=== PATIENT | male | born 1995 | race Caucasian/White ===

== ENCOUNTER 2021-06-03 20:48 | Inpatient (IN) ==
[2021-06-04] MEDS ORDERED: Naloxone 0.4 MG/ML INJ IVP PRN (04:18)
[2021-06-04] MEDS ORDERED: Ondansetron 4 MG/2 ML VIAL IVP PRN (04:18)
[2021-06-04] MEDS ORDERED: 0.9 % Sodium Chloride 1,000 ML IVC SCH (04:30)
[2021-06-04] MEDS ORDERED: D5 IVC ONE (05:04)
[2021-06-04] MEDS ORDERED: ACETYLCYSTEINE IVC ONE (05:04)
[2021-06-04] MEDS ORDERED: WATER IVC ONE (05:04)
[2021-06-04 07:07] LABS: VBG HCO3 21 mEq/L (21-27); VBG PCO2 41 mmHg (41-51); VBG PH 7.32 pH Units (7.32-7.42); VBG PO2 67 mmHg (25-50)
[2021-06-04 07:13] LABS: Basophils # 0.1 K/mcL (0.0-0.2); Basophils % 0.5 %; Eosinophils # 0.1 K/mcL (0.0-0.6); Eosinophils % 1.2 %; Hematocrit 39.6 % (37.5-50.1); Hemoglobin 13.6 g/dL (12.9-16.9); Immature Granulocytes % 0.3 % (0-4); Lymphocytes # 1.1 K/mcL (0.6-4.6); Lymphocytes % 11.6 %; Mean Corpuscular HGB Conc 34.3 g/dL (31.6-35.5); Mean Corpuscular Hemoglobin 30.2 pg (28.0-33.3); Mean Platelet Volume 9.8 fL (9.4-12.4); Monocytes # 0.5 K/mcL (0.0-1.3); Monocytes % 5.2 %; Neutrophils # 7.8 K/mcL (1.6-8.9); Platelet Count 211 K/mcL (140-400); Red Cell Distribution Width 12.2 % (11.5-14.5); Segmented Neutrophils % 81.2 %; White Blood Count 9.6 K/mcL (4.3-11.1)
[2021-06-04 07:20] LABS: INR 1.4; Prothrombin Time 15.9 Seconds (9.4-12.1)
[2021-06-04 07:22] LABS: Activated Partial Thrombo Time 30.2 Seconds (26.0-36.0)
[2021-06-04 07:30] LABS: Acetaminophen 37 mcg/mL (10-20); Alanine Aminotransferase 120 Units/L (7-52); Albumin 4.1 g/dL (3.5-5.7); Albumin/Globulin Ratio 1.9 (1.1-2.2); Alkaline Phosphatase 40 Units/L (34-104); Aspartate Amino Transferase 71 Units/L (13-39); BUN/Creatinine Ratio 22 (6-26); Bilirubin,Direct 0.5 mg/dL (0.0-0.2); Bilirubin,Indirect 2.3 mg/dL (0.0-1.0); Bilirubin,Total 2.8 mg/dL (0.3-1.0); Blood Urea Nitrogen 25 mg/dL (6-20); Calcium 8.5 mg/dL (8.6-10.3); Carbon Dioxide 18 mEq/L (23-29); Chloride 111 mEq/L (98-107); Chol/HDL Ratio 3.8 (0-4.9); Cholesterol 110 mg/dL (< 200); Ethanol < 10 mg/dL (Less than 10); Globulin 2.2 g/dL (2.4-3.5); Glucose 125 mg/dL (70-105); HDL Cholesterol 29 mg/dL (40-59); LDL Cholesterol,Calculated 76 mg/dL (< 100); Magnesium 2.4 mg/dL (1.6-2.6); Osmolality,Calculated 296 (280-300); Phosphorous 5.4 mg/dL (2.7-4.5); Potassium 3.7 mEq/L (3.5-5.1); Salicylate < 2.5 mg/dL (15.0-30.0); Sodium 140 mEq/L (136-145); Total Protein 6.3 g/dL (6.4-8.9); Triglycerides 26 mg/dL (< 150); eGFR For African Americans > 60 (> 60); eGFR For Non-African Americans > 60 (> 60)
[2021-06-04 08:01] LABS: Hepatitis B Surface Antigen Nonreactive (Nonreactive)
[2021-06-04 08:30] LABS: Hepatitis B Core IgM Nonreactive (Nonreactive)
[2021-06-04 08:31] LABS: Hepatitis A Antibody IgM Nonreactive (Nonreactive)
[2021-06-04 10:01] LABS: Hepatitis C Virus Antibody Reactive (Nonreactive)
[2021-06-04 12:11] LABS: Bilirubin,Urine Negative (Negative); Blood,Urine Negative (Negative); Clarity,Urine Clear (Clear); Color,Urine Light-Yellow (Yellow); Glucose,Urine (UA) 30 mg/dL (Normal); Ketones,Urine 10 mg/dL (Negative); Leukocyte Esterase,Urine Negative (Negative); Mucus,Urine Few per lpf (None-Few); Nitrite,Urine Negative (Negative); Protein,Urine Trace mg/dL (Neg-Trace); RBC,Urine 0-3 per hpf (0-3); Specific Gravity,Urine 1.028 (1.010-1.025); Squamous Epithelial Cell,Urine Few per hpf (None-Few); Urobilinogen,Urine Normal (Normal); WBC,Urine 50-100 per hpf (0-3)
[2021-06-04 12:33] LABS: Amphetamine Screen,Urine Positive ng/mL (Cutoff=1000); Barbiturate Screen,Urine Negative ng/mL (Cutoff=200); Benzodiazepines Screen,Urine Negative ng/mL (Cutoff=200); Cannabinoid Screen,Urine Negative ng/mL (Cutoff = 50); Cocaine Screen,Urine Negative ng/mL (Cutoff= 300); Opiate Screen,Urine Negative ng/mL (Cutoff=300); Phencyclidine Screen,Urine Negative ng/mL (Cutoff=25)
[2021-06-04] MEDS: Ringers Solution, Lactated 1,000 ML IVC SCH (13:58)
[2021-06-04 14:40] LABS: Alanine Aminotransferase 132 Units/L (7-52); Albumin 4.3 g/dL (3.5-5.7); Albumin/Globulin Ratio 1.9 (1.1-2.2); Alkaline Phosphatase 41 Units/L (34-104); Aspartate Amino Transferase 61 Units/L (13-39); BUN/Creatinine Ratio 21 (6-26); Blood Urea Nitrogen 23 mg/dL (6-20); Calcium 8.8 mg/dL (8.6-10.3); Carbon Dioxide 22 mEq/L (23-29); Chloride 110 mEq/L (98-107); Globulin 2.3 g/dL (2.4-3.5); Glucose 103 mg/dL (70-105); Osmolality,Calculated 294 (280-300); Potassium 3.7 mEq/L (3.5-5.1); Sodium 140 mEq/L (136-145); Total Protein 6.6 g/dL (6.4-8.9); eGFR For African Americans > 60 (> 60); eGFR For Non-African Americans > 60 (> 60)
[2021-06-04] MEDS: *HR* Heparin 5,000 UNIT/ML VIAL SQ SCH (18:25)
[2021-06-04 20:14] LABS: Acetaminophen < 10 mcg/mL (10-20); Alanine Aminotransferase 140 Units/L (7-52); Albumin 3.9 g/dL (3.5-5.7); Albumin/Globulin Ratio 1.6 (1.1-2.2); Alkaline Phosphatase 41 Units/L (34-104); Aspartate Amino Transferase 65 Units/L (13-39); Bilirubin,Direct 0.4 mg/dL (0.0-0.2); Bilirubin,Total 2.4 mg/dL (0.3-1.0); Globulin 2.5 g/dL (2.4-3.5); Total Protein 6.4 g/dL (6.4-8.9)
[2021-06-04] MEDS: D5 IVC ONE (21:15)
[2021-06-04] MEDS: ACETYLCYSTEINE IVC ONE (21:15)
[2021-06-04] MEDS: WATER IVC ONE (21:15)
[2021-06-05] MEDS: Ringers Solution, Lactated 1,000 ML IVC SCH ×4 (05:12→18:33)
[2021-06-05] MEDS: *HR* Heparin 5,000 UNIT/ML VIAL SQ SCH ×2 (05:41→18:33)
[2021-06-05 06:03] LABS: Alanine Aminotransferase 420 Units/L (7-52); Albumin 3.7 g/dL (3.5-5.7); Albumin/Globulin Ratio 1.7 (1.1-2.2); Alkaline Phosphatase 37 Units/L (34-104); Aspartate Amino Transferase 327 Units/L (13-39); BUN/Creatinine Ratio 19 (6-26); Bilirubin,Total 1.7 mg/dL (0.3-1.0); Blood Urea Nitrogen 17 mg/dL (6-20); Calcium 8.7 mg/dL (8.6-10.3); Carbon Dioxide 23 mEq/L (23-29); Chloride 109 mEq/L (98-107); Globulin 2.2 g/dL (2.4-3.5); Glucose 104 mg/dL (70-105); Osmolality,Calculated 288 (280-300); Potassium 3.9 mEq/L (3.5-5.1); Sodium 138 mEq/L (136-145); Total Protein 5.9 g/dL (6.4-8.9); eGFR For African Americans > 60 (> 60); eGFR For Non-African Americans > 60 (> 60)
[2021-06-05 08:54] LABS: INR 1.4; Prothrombin Time 15.7 Seconds (9.4-12.1)
[2021-06-05 11:57] LABS: Alanine Aminotransferase 736 Units/L (7-52); Albumin 3.7 g/dL (3.5-5.7); Albumin/Globulin Ratio 1.7 (1.1-2.2); Alkaline Phosphatase 35 Units/L (34-104); Aspartate Amino Transferase 509 Units/L (13-39); Bilirubin,Direct 0.3 mg/dL (0.0-0.2); Bilirubin,Indirect 1.3 mg/dL (0.0-1.0); Bilirubin,Total 1.6 mg/dL (0.3-1.0); Globulin 2.2 g/dL (2.4-3.5); Total Protein 5.9 g/dL (6.4-8.9)
[2021-06-05] MEDS: ACETYLCYSTEINE IVC ONE (12:34)
[2021-06-05] MEDS: WATER IVC ONE (12:34)
[2021-06-05] MEDS: D5 IVC ONE (12:34)
[2021-06-05 14:12] LABS: Acetaminophen < 10 mcg/mL (10-20)
[2021-06-05] MEDS ORDERED: ACETYLCYSTEINE 6000 MG/30 ML IVC SCH (18:38)
[2021-06-05] MEDS ORDERED: D5 IVC SCH (18:45)
[2021-06-05] MEDS ORDERED: ACETYLCYSTEINE IVC SCH (18:45)
[2021-06-05] MEDS ORDERED: WATER IVC SCH (18:45)
[2021-06-06 03:00] LABS: Acetaminophen < 10 mcg/mL (10-20); Alanine Aminotransferase 848 Units/L (7-52); BUN/Creatinine Ratio 14 (6-26); Blood Urea Nitrogen 10 mg/dL (6-20); Calcium 8.8 mg/dL (8.6-10.3); Carbon Dioxide 27 mEq/L (23-29); Chloride 106 mEq/L (98-107); Glucose 153 mg/dL (70-105); Osmolality,Calculated 290 (280-300); Potassium 3.5 mEq/L (3.5-5.1); Sodium 139 mEq/L (136-145); eGFR For African Americans > 60 (> 60); eGFR For Non-African Americans > 60 (> 60)
[2021-06-06 03:42] LABS: Alkaline Phosphatase 34 Units/L (34-104); Aspartate Amino Transferase 371 Units/L (13-39); Bilirubin,Direct 0.2 mg/dL (0.0-0.2); Bilirubin,Indirect 0.7 mg/dL (0.0-1.0); Bilirubin,Total 0.9 mg/dL (0.3-1.0)
[2021-06-06 03:43] LABS: Albumin 3.6 g/dL (3.5-5.7); Albumin/Globulin Ratio 1.6 (1.1-2.2); Globulin 2.2 g/dL (2.4-3.5); Total Protein 5.8 g/dL (6.4-8.9)
[2021-06-06 04:15] LABS: Basophils % 0.6 %; Eosinophils # 0.3 K/mcL (0.0-0.6); Eosinophils % 5.5 %; Hematocrit 35.5 % (37.5-50.1); Hemoglobin 12.3 g/dL (12.9-16.9); Immature Granulocytes % 0.2 % (0-4); Lymphocytes # 1.6 K/mcL (0.6-4.6); Lymphocytes % 32.6 %; Mean Corpuscular HGB Conc 34.6 g/dL (31.6-35.5); Mean Corpuscular Hemoglobin 30.4 pg (28.0-33.3); Mean Corpuscular Volume 87.7 fL (83.0-100.0); Mean Platelet Volume 10.1 fL (9.4-12.4); Monocytes # 0.4 K/mcL (0.0-1.3); Monocytes % 8.5 %; Neutrophils # 2.6 K/mcL (1.6-8.9); Platelet Count 207 K/mcL (140-400); Red Blood Count 4.05 M/mcL (4.19-5.50); Segmented Neutrophils % 52.6 %; White Blood Count 4.9 K/mcL (4.3-11.1)
[2021-06-06] MEDS: Ringers Solution, Lactated 1,000 ML IVC SCH (04:45)
[2021-06-06] MEDS: *HR* Heparin 5,000 UNIT/ML VIAL SQ SCH ×2 (06:11→18:15)
[2021-06-06] MEDS ORDERED: Ondansetron 4 MG/2 ML VIAL IVP PRN (13:00)
[2021-06-06] MEDS ORDERED: Naloxone 0.4 MG/ML INJ IVP PRN (13:00)
[2021-06-07] MEDS ORDERED: *HR* HYDROmorphone 2 MG TABLET PO ONE (03:52)
[2021-06-07] MEDS ORDERED: Ibuprofen 600 MG TABLET PO ONE ×2 (03:56→22:25)
[2021-06-07] MEDS: *HR* Heparin 5,000 UNIT/ML VIAL SQ SCH ×2 (08:37→16:38)
[2021-06-07] MEDS: 0.9 % Sodium Chloride 1,000 ML IVC SCH (16:37)
[2021-06-07 17:00] LABS: Hematocrit 40.1 % (37.5-50.1); Hemoglobin 13.6 g/dL (12.9-16.9); Mean Corpuscular HGB Conc 33.9 g/dL (31.6-35.5); Mean Corpuscular Hemoglobin 30.4 pg (28.0-33.3); Mean Corpuscular Volume 89.7 fL (83.0-100.0); Platelet Count 221 K/mcL (140-400); Red Blood Count 4.47 M/mcL (4.19-5.50); Red Cell Distribution Width 12.1 % (11.5-14.5); White Blood Count 5.1 K/mcL (4.3-11.1)
[2021-06-07 17:14] LABS: Alanine Aminotransferase 479 Units/L (7-52); Albumin 4.2 g/dL (3.5-5.7); Albumin/Globulin Ratio 1.6 (1.1-2.2); Alkaline Phosphatase 40 Units/L (34-104); Aspartate Amino Transferase 68 Units/L (13-39); BUN/Creatinine Ratio 19 (6-26); Bilirubin,Direct 0.1 mg/dL (0.0-0.2); Bilirubin,Indirect 0.5 mg/dL (0.0-1.0); Bilirubin,Total 0.6 mg/dL (0.3-1.0); Blood Urea Nitrogen 15 mg/dL (6-20); Calcium 9.5 mg/dL (8.6-10.3); Carbon Dioxide 28 mEq/L (23-29); Chloride 108 mEq/L (98-107); Globulin 2.6 g/dL (2.4-3.5); Glucose 105 mg/dL (70-105); Magnesium 1.9 mg/dL (1.6-2.6); Osmolality,Calculated 293 (280-300); Potassium 4.1 mEq/L (3.5-5.1); Sodium 141 mEq/L (136-145); Total Protein 6.8 g/dL (6.4-8.9); eGFR For African Americans > 60 (> 60); eGFR For Non-African Americans > 60 (> 60)
[2021-06-07 17:40] VITALS: PULSE 60
[2021-06-07 23:49] VITALS: BP 132/80; TEMP 98.1; O2SAT 98
[2021-06-08] MEDS: *HR* Heparin 5,000 UNIT/ML VIAL SQ SCH (06:43)
[2021-06-08] MEDS: 0.9 % Sodium Chloride 1,000 ML IVC SCH ×2 (07:25→12:33)
[2021-06-09 06:23] LABS: HCV Quant Interpretation NOT DETECTED (Not Detected); HCV Quant Log NOT DETECTED log IU/mL
== END 2021-06-08 15:47 | disposition home or self-care (01) | DRG 817 ==
LOC: ICNU → SUATTDRO 06-04 03:48 → OBSVTOIN 06-04 03:48 → 3ANU 06-06 12:53
PROVIDERS: ADMIT Internal Medicine; ATTEND Internal Medicine

== ENCOUNTER 2021-06-08 15:01 | Inpatient (IN) ==
[2021-06-08] MEDS ORDERED: haloperidoL 5 MG TABLET PO PRN (17:18)
[2021-06-08] MEDS ORDERED: Haloperidol Lactate 5 MG/ML VIAL IM PRN (17:18)
[2021-06-08] MEDS ORDERED: *HR* LORazepam 1 MG TABLET PO PRN (17:18)
[2021-06-08] MEDS ORDERED: MOM Conc 10 ML UD.LIQ PO PRN (17:18)
[2021-06-08] MEDS ORDERED: *HR* LORazepam 2 MG/ML VIAL IM PRN (17:18)
[2021-06-08] MEDS ORDERED: Mag Hydrox/Al Hydrox/Simeth 30 ML UDC PO PRN (17:18)
[2021-06-08] MEDS: Ibuprofen 400 MG TABLET PO PRN (21:01)
[2021-06-08] MEDS: Nicotine 14 MG PATCH.TD24 TD SCH (21:53)
[2021-06-09] MEDS: Ibuprofen 400 MG TABLET PO PRN (08:51)
[2021-06-09] MEDS: Nicotine 14 MG PATCH.TD24 TD SCH (08:54)
[2021-06-09] MEDS: Nicotine 21 MG PATCH.TD24 TD SCH (11:13)
[2021-06-09] MEDS: hydrOXYzine pamoate 25 MG CAPSULE PO PRN (20:39)
[2021-06-09] MEDS: traZODone 50 MG TABLET PO PRN (20:39)
[2021-06-10] MEDS: Ibuprofen 400 MG TABLET PO PRN ×2 (08:43→20:47)
[2021-06-10] MEDS: Nicotine 21 MG PATCH.TD24 TD SCH (08:43)
[2021-06-10] MEDS: traZODone 50 MG TABLET PO PRN (20:46)
[2021-06-10] MEDS: hydrOXYzine pamoate 25 MG CAPSULE PO PRN (20:46)
[2021-06-11] MEDS: Nicotine 21 MG PATCH.TD24 TD SCH (08:48)
[2021-06-11 10:16] VITALS: BP 108/65; PULSE 70; TEMP 98.5; O2SAT 98
[2021-06-11] MEDS: Ibuprofen 400 MG TABLET PO PRN (11:25)
== END 2021-06-11 20:13 | disposition home or self-care (01) | DRG 754 ==
LOC: 1ANU 15:01
PROVIDERS: ADMIT Psychiatry & Neurology Psychiatry; ATTEND Psychiatry & Neurology Psychiatry